=== PATIENT | female | born 2000 ===

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

== ENCOUNTER → 2019-01-30 | Outpatient (CLI) | payer OTHER | LOC: LAB 13:46 → LAB SHORT 13:46 | DX: Z34.91 Encounter for supervision of normal pregnancy, unspecified, first trimester (principal) | CPT/HCPCS: 87077; 87086; 87186 ==